=== PATIENT | male | born 1970 | race Caucasian/White ===

== ENCOUNTER 2017-01-21 08:20 | Inpatient (IN) | payer BC, OTHER ==
[~2017-01-21] VITALS: Ht 182.9 cm; Wt 106.6 kg
[2017-01-21 00:30] VITALS: BP 96/66
[2017-01-21] MEDS ORDERED: ONDANSETRON ODT 4 MG TAB.RAPDIS SL PRN (22:30)
[2017-01-21] MEDS ORDERED: ONDANSETRON 4 MG/2 ML VIAL IM PRN (22:30)
[2017-01-21] MEDS ORDERED: DICYCLOMINE HCL 20 MG TABLET PO PRN (22:30)
[2017-01-21] MEDS ORDERED: diphenhydrAMINE 50 MG CAPSULE PO PRN (22:30)
[2017-01-21] MEDS ORDERED: INSULIN REGULAR, HUMAN 300 UNIT/3 ML VIAL SQ PRN (22:30)
[2017-01-21] MEDS ORDERED: MIRALAX 17 GM POWD.PACK PO PRN (22:30)
[2017-01-21] MEDS ORDERED: BUPRENORPHINE HCL 2 MG TAB.SUBL SL PRN (22:30)
[2017-01-21] MEDS ORDERED: DEXTROSE 50% 50 ML DISP.SYRIN IV PRN (22:30)
[2017-01-21] MEDS ORDERED: MAG HYDROX/AL HYDROX/SIMETH 30 ML LIQUID UDC PO PRN (22:30)
[2017-01-21] MEDS ORDERED: METHOCARBAMOL 750 MG TABLET PO PRN (22:30)
[2017-01-21] MEDS ORDERED: MAGNESIUM HYDROXIDE 30 ML LIQUID UDC PO PRN (22:30)
[2017-01-21] MEDS ORDERED: LOPERAMIDE HCL 2 MG CAPSULE PO PRN ×2 (22:30)
[2017-01-21] MEDS ORDERED: ACETAMINOPHEN 325 MG TABLET PO PRN (22:30)
[2017-01-21 22:45] VITALS: BP 116/81
--- NOTE | 2017-01-21 22:45 | NUR ---
PRE-ADMISSION Pt's pre-admission assessment performed in the intake office of [facility]. Pt is accompanied by his . He is A&O x4 and ambulatory with a steady gait. Pt does not appear intoxicated and answers all questions appropriately. He verbalizes that he has been using Subutex, opioids, Xanax, cocaine, marijuana, and occasional ETOH. Pt denies food or drug allergies. Vital signs are B/P 116/78, HR 78, RR 18, O2 sat 94%, T 97.9, pain 0/10. He has a brace on the right knee related to an ongoing injury. Pt is able to provide UDS during the intake process. He states that his home medications are: Lisinopril, Prednisone, sulfsalazine, terazosin, diclofenac, pantaprozole, and metformin. [facility].
[2017-01-21 23:14] LABS: *AMPHETAMINE, URINE NEGATIVE (NEGATIVE); *BARBITURATE, URINE NEGATIVE (NEGATIVE); *CANNABINOID, URINE POSITIVE (NEGATIVE); *COCCAINE, URINE NEGATIVE (NEGATIVE); *OPIATE, URINE NEGATIVE (NEGATIVE); *PHENCYCLIDINE SCREEN,URINE NEGATIVE (NEGATIVE)
--- NOTE | 2017-01-22 00:15 | NUR ---
ADMISSION Pt is a 46 yo male who arrived [facility] the [facility] at 2300 on 01/21/17 for medically supervised detox. He is A&O x4 and ambulatory with a steady gait. He reports NKA, is full code status, and on a regular diet. Body check performed by T and skin check performed by nurse. He was oriented to the unit and his room. Vital signs in intake are: B/P 116/81, HR 78, RR 18, O2 sat 94%, T 97.9, pain 0/10. Pt is 6'0" and weight 235lb. He has a PMH of DM Type II, HTN, psoriasis, psoriatic arthritis, enlarged prostate, acid reflux, thalassemia, right knee injury with swelling, bilateral hand swelling, and anxiety. Lung sounds clear, PERRLA, brisk capillary refill, bowel sounds present. He has a small scabs on the right [place] and a bruise on the right calf. No s/s of infection. Pt wears bilateral wrist guards when sleeping to prevent swelling. History of Use 1) Subutex SL 1 mg BID for the past 1 year. Last used 1mg on 01/21/17 at 2100. He has used Subutex "off and on for 10 years". At one time he was using 32mg per day. 2) Xanax 1-2mg on 14 days per month for the past 1 year. Last used 4mg on 01/07/17. He has used Xanax "off and on for 10 years". 3) Oxycodone 60mg PO on 14 days per month for the past 1 years. Last used 30mg on 01/10/17. He has used oxycodone "off and on for 10 years". 4) ETOH anywhere from 1 beer to 4 mixed drinks 2x/month for the past 1 year. Last drank 4 margaritas on 01/14/17. He has used ETOH occasionally for the past 17 years. 5) Cocaine 1-2 grams per day for 14 days out of the month. Last used 17.5 grams over 2 weeks. He has used cocaine "off and on for 17 years". 6) Marijuana 2 hits at night. Last used 2 hits on 01/20/17. He has used marijuana occasionally for 17 years. The patient reports that he alternates between using Oxycodone and Subutex. He uses Xanax as needed to "come down off the uppers" . Symptoms when he doesn't use include "racing thoughts, cold, anxiety, diarrhea, body aches". He decided to come to treatment today because, "I"m getting to be so far gone". The patient explains that he became paranoid and believed his family was trying to hurt him. His longest period of sobriety was 18 months ago for four day. This is his first time in treatment. His primary care physician is Dr. Addy Morrison in [facility]. COWS 2 and CIWA 1 on admission. UDS positive for cannabinoids. MD aware of patients admission. Pt educated regarding use of the call light and all questions answered. Fall and seizure precautions in place. Bed is down with call light in reach. Addendum: 01/22/17 at 0604 by THALIA BRADY RN Pt's PMH also includes ear infections, seasonal allergies, and pneumonia. Addendum: 01/22/17 at 0611 by THALIA BRADY RN Last date of cocaine use 01/11/17 Addendum: 01/22/17 at 0623 by THALIA BRADY RN Pt was treated at the on 01/12/17 for an overdose.
[2017-01-22] MEDS ORDERED: PRED-429 PO (00:24)
[2017-01-22] MEDS ORDERED: PANT40TA4 PO (00:24)
[2017-01-22] MEDS ORDERED: METF-494 PO (00:24)
[2017-01-22] MEDS ORDERED: SULF500T8 PO (00:24)
[2017-01-22] MEDS ORDERED: LISI10TA5 PO (00:24)
[2017-01-22] MEDS ORDERED: TERA10CA4 PO (00:24)
[2017-01-22] MEDS ORDERED: DICL50TA7 PO (00:24)
[2017-01-22] MEDS: IBUPROFEN 600 MG TABLET PO PRN ×2 (01:00→21:16)
--- NOTE | 2017-01-22 01:01 | NUR ---
PRN Motrin administration Pt c/o right knee pain 12/20. PRN Motrin administered.
[2017-01-22] MEDS ORDERED: IBUPROFEN 600 MG TABLET ONE (01:09)
--- NOTE | 2017-01-22 02:01 | NUR ---
PRN Motrin reassessment PRN Motrin effective. Pt is lying comfortably in bed resting with eyes closed. Respirations even and unlabored. Safety measures in place.
[2017-01-22 04:00] VITALS: BP 101/65
--- NOTE | 2017-01-22 07:13 | NUR ---
END OF SHIFT Report provided to day shift nurse. Pt is lying in bed resting. He is a 46 yo male admitted to [facility] on 01/21/17 at 2300 for Subutex dependence with a h/o BZD, oxycodone, ETOH, cocaine, and marijuana use. Admission orders received. Last COWS 2 and CIWA 1. He drank 480mL and slept for 5 hours. Fall and seizure precautions in place. Bed is down with call light in reach.
[2017-01-22] MEDS ORDERED: BLOOD SUGAR DIAGNOSTIC 1 EACH STRIP VI SCH (07:30)
--- NOTE | 2017-01-22 07:40 | NUR ---
START OF SHIFT NOTE: Report received from date night caregiver nurse. Pt is 46 yo male admitted 01/21/17 for Subutex dependence with a h/o BZD, oxycodone, ETOH, cocaine, and marijuana use. Pt is a Diabetic. Pt is alert and oriented X4. Color good, skin warm and dry. Respirations even and unlabored. Safety precautions observed. Call light within reach.
--- NOTE | 2017-01-22 07:45 | NUR ---
Accucheck 117 No insulin administered per sliding scale.
[2017-01-22 08:20] LABS: BASOPHILS % (AUTO) 0.6 % (0.0-2.0); EOSINOPHILS # (AUTO) 0.1 K/uL (0.0-0.7); EOSINOPHILS % (AUTO) 1.2 % (0.0-7.0); HEMATOCRIT 37.5 % (40-50); LYMPHOCYTES # (AUTO) 2.4 K/UL (0.8-4.8); LYMPHOCYTES % (AUTO) 33.9 % (20.5-51.5); MEAN CORPUSCULAR HEMOGLOBIN 32.8 UUG (27.0-31.0); MEAN CORPUSCULAR HGB CONC 35 g/dL (32.0-37.0); MEAN CORPUSCULAR VOLUME 94.4 FL (82.0-92.0); MONOCYTES # (AUTO) 0.5 K/UL (0.1-1.30); NEUTROPHILS # (AUTO) 3.9 K/UL (1.8-8.9); NEUTROPHILS % (AUTO) 57.3 % (38.5-71.5); PLATELET COUNT (AUTO) 168 K/UL (150-450); RED BLOOD CELL COUNT(AUTO) 3.97 MIL/UL (4.7-6.1); RED CELL DISTRIBUTION WIDTH 12.6 % (11.5-14.5); WHITE BLOOD COUNT (AUTO) 6.9 K/UL (4.0-11.2)
[2017-01-22 08:41] LABS: ALANINE AMINOTRANSFERASE 23 U/L (16-63); ALBUMIN 3.4 g/dL (3.4-5.0); ALKALINE PHOSPHATASE 41 U/L (50-136); ASPARTATE AMINOTRANSFERASE 22 U/L (15-37); BILIRUBIN,TOTAL 0.3 mg/dL (0.2-1.0); CALCIUM 8.9 mg/dL (8.5-10.1); CARBON DIOXIDE 30 mmol/L (21-32); CHLORIDE 106 mmol/L (98-107); CREATININE 0.8 mg/dL (0.6-1.3); GFR 104 mL/min (>60); GLUCOSE 127 mg/dL (74-106); MAGNESIUM 1.7 mg/dL (1.8-2.4); POTASSIUM 4.6 mmol/L (3.5-5.1); SODIUM SERUM 142 mmol/L (136-145); TOTAL PROTEIN, SERUM 6.6 g/dL (6.4-8.2); UREA NITROGEN, BLOOD 23 mg/dL (7-18)
[2017-01-22 08:42] LABS: ETHANOL < 3 MG/DL (0-0)
[2017-01-22 08:53] LABS: THYROID STIMULATING HORMONE 3.636 mIU/mL (0.358-3.740)
[2017-01-22] MEDS ORDERED: TUBERCULIN,PURIF.PROT.DERIV. 5 TU/0.1 ML TEST ID ONE (09:00)
[2017-01-22] MEDS ORDERED: PATIENT MAY USE OWN MED- MD OK PO SCH ×3 (09:00→21:00)
[2017-01-22] MEDS ORDERED: PANTOPRAZOLE SODIUM 40 MG TABLET.DR PO ONE (09:00)
--- NOTE | 2017-01-22 09:00 | NUR ---
TB test administered LFA
[2017-01-22] MEDS: MULTIVITAMINS,THERAPEUTIC TABLET PO SCH (09:17)
[2017-01-22 11:37] LABS: HIV-1 p24 ANTIGEN NON REACTIVE (NONREACTIVE); HIV-1/2 ANTIBODY NON REACTIVE (NONREACTIVE)
[2017-01-22] MEDS ORDERED: MAGNESIUM OXIDE 400 MG TABLET PO ONE (11:45)
[2017-01-22] MEDS ORDERED: methylPREDNISolone 1 PACK TAB.DS.PK [4MG TAB] PO ONE (13:30)
[2017-01-22] MEDS ORDERED: methylPREDNISolone 4 MG TABLET (DAY#1) PO ONE (13:45)
[2017-01-22] MEDS ORDERED: methylPREDNISolone 4 MG TABLET (DAY#1, BEFORE DINNER) PO ONE (17:30)
[2017-01-22] MEDS: METFORMIN XR 500 MG TAB.SR.24H PO SCH (17:38)
[2017-01-22] MEDS: SULFASALAZINE 500 MG TABLET PO SCH (17:46)
[2017-01-22] MEDS: HYDROXYZINE PAMOATE 25 MG CAPSULE PO PRN (17:47)
--- NOTE | 2017-01-22 17:55 | NUR ---
VSS COWS 4 CIWA 6 Vistaril 50mg po prn and Tylenol 650mg po prn given
[2017-01-22 18:16] VITALS: BP 101/65
--- NOTE | 2017-01-22 18:45 | NUR ---
Pt feels improved after Vistaril and Tylenol prn
--- NOTE | 2017-01-22 18:54 | NUR ---
END OF SHIFT NOTE: Report given to warehouse worker 2nd shift nurse. Pt is 46 yo male admitted 01/21/17 for Subutex dependence with a h/o BZD, oxycodone, ETOH, cocaine, and marijuana use. Pt is a Diabetic. Pt is alert and oriented X4. Color good, skin warm and dry. Respirations even and unlabored. Vital signs have remained stable throughout shift. TB test administered LFA. Pt received Vistaril 50mg po prn and Tylenol 650mg po prn @ 1800 Last COWS 4 CIWA 5@ 1700 Safety precautions observed. Call light within reach.
--- NOTE | 2017-01-22 19:50 | NUR ---
START OF SHIFT Received report from day shift nurse. Pt just got out of the shower and is brushing his hair. He is a 46 yo male admitted to [facility] on 01/21/17 for opiate dependence. He is A&O x4 and ambulatory. NKA, full code status, and on a regular diet. He has a PMH of seasonal allergies, HTN, DM Type II, acid reflux, R knee injury, thalassemia, psoriasis, psoriatic arthritis, ear infections, PNA, anxiety, and drug overdose on 01/12/17. On admission he admitted to using subutex 1mg BID for the past year, xanax 1-2 mg 2 weeks per month and last used 01/07/17, oxycodone 60mg 2 weeks per month, ETOH 1 beer - 4 mixed drinks 2x/month, cocaine 1-2 grams per day for 2 weeks/month, and marijuana. Pt is ordered PRN detox medications. He reports joint aches, anxiety, and is noted with clammy skin. Fall and seizure precautions in place. Bed is down with call light in reach.
[2017-01-22 20:00] VITALS: BP 117/74
[2017-01-22] MEDS ORDERED: methylPREDNISolone 4 MG TABLET (DAY#1, HS) PO ONE (21:00)
[2017-01-22] MEDS ORDERED: TERAZOSIN 5 MG CAPSULE PO SCH ×2 (21:00)
[2017-01-22] MEDS: TERAZOSIN 2 MG CAPSULE PO SCH (21:15)
[2017-01-22] MEDS: GABAPENTIN 300 MG CAPSULE PO SCH (21:16)
[2017-01-22] MEDS: CLONIDINE HCL 0.1 MG TABLET PO PRN (21:16)
--- NOTE | 2017-01-22 21:17 | NUR ---
PRN Clonidine and Motrin Pt c/o joint pain, headache, anxiety, and hot/cold flashes. PRN Clonidine and Motrin administered.
--- NOTE | 2017-01-22 22:17 | NUR ---
PRN Clonidine and Motrin reassessment PRN Clonidine and Motrin effective. Pt reports that headache is relieved. He states that he feels more relaxed and should be able to fall asleep. B/P and HR WNL. His skin is moist with sweat. Offered to remove blanket and he refused.
[2017-01-22 22:20] VITALS: BP 129/71
[2017-01-23] VITALS: BP 129/71
[2017-01-23 04:00] VITALS: BP 117/69
[2017-01-23] MEDS: PANTOPRAZOLE SODIUM 40 MG TABLET.DR PO SCH (07:02)
--- NOTE | 2017-01-23 07:25 | NUR ---
END OF SHIFT Report provided to day shift nurse. Pt is lying in bed resting. He is a 46 yo male admitted to [facility] on 01/21/17 for opiate dependence. He is A&O x4 and ambulatory. NKA, full code status, and on a regular diet. He has a PMH of seasonal allergies, HTN, DM Type II, acid reflux, R knee injury, thalassemia, psoriasis, psoriatic arthritis, ear infections, PNA, anxiety, and drug overdose on 01/12/17. On admission he admitted to using subutex 1mg BID for the past year, xanax 1-2 mg 2 weeks per month and last used 01/07/17, oxycodone 60mg 2 weeks per month, ETOH 1 beer - 4 mixed drinks 2x/month, cocaine 1-2 grams per day for 2 weeks/month, and marijuana. PRN medications ordered for the management of withdrawal symptoms. PRN Motrin administered. Last COWS 1 and CIWA 2. He drank 800mL and slept for 8 hours. Fall and seizure precautions in place. Bed is down with call light in reach.
[2017-01-23] MEDS ORDERED: methylPREDNISolone 4 MG TABLET (DAY#2, ACB) PO ONE (07:30)
--- NOTE | 2017-01-23 07:40 | NUR ---
START OF SHIFT Rcvd endorsement from night nurse, client is in bed, he is A/O x4, he presents with depressed mood, flat affect. Client reports some mild leg cramps. He denies any N/V/D or SI/HI. Encouraged increased fluids as tolerated, to facilitating detox process. Encourage group attendance to improve coping skills. He is a 46 yo male admitted to [facility] on 01/21/17 for opiate, benzodiazepine, and alcohol withdrawal. NKA, Full code status, Regular diet. Last COWS /CIWA 2. PRN Motrin for pain on R knee, and Clonidine for anxiety, irritability. noted effective. He slept 8 hrs. Seizure precautions in place. Side rails x 2 up/padded. Call light within reach. Will continue plan of care
[2017-01-23] MEDS: SULFASALAZINE 500 MG TABLET PO SCH ×2 (08:49→17:48)
[2017-01-23] MEDS: GABAPENTIN 300 MG CAPSULE PO SCH ×2 (08:49→20:21)
[2017-01-23] MEDS: MULTIVITAMINS,THERAPEUTIC TABLET PO SCH (08:49)
[2017-01-23 08:55] VITALS: BP 119/76
[2017-01-23] MEDS ORDERED: methylPREDNISolone 4 MG TABLET (DAY#2, PC LUNCH) PO ONE (12:30)
[2017-01-23 12:55] VITALS: BP 140/87
[2017-01-23] MEDS: IBUPROFEN 600 MG TABLET PO PRN (12:57)
--- NOTE | 2017-01-23 12:57 | NUR ---
PRN Motrin 600mg PO Client reports pain on right knee, no swelling noted. He stated "This is a chronic pain, I notice it more when I am detoxing." Encouraged to elevate right lower extremity, Motrin 600mg Po administered. Will continue to monitor. Call light within reach.
--- NOTE | 2017-01-23 13:57 | NUR ---
Reassessment PRN Motrin 600mg PO Client reports relief from pain on right knee from 5/10 to 2/10, but is manageable. Will continue to monitor. Call light within reach.
[2017-01-23 16:55] VITALS: BP 113/67
[2017-01-23] MEDS ORDERED: methylPREDNISolone 4 MG TABLET (DAY#2, PC DINNER) PO ONE (17:30)
[2017-01-23] MEDS: METFORMIN XR 500 MG TAB.SR.24H PO SCH (17:48)
[2017-01-23] MEDS: HYDROXYZINE PAMOATE 25 MG CAPSULE PO PRN (17:48)
[2017-01-23] MEDS: CLONIDINE HCL 0.1 MG TABLET PO PRN (17:48)
--- NOTE | 2017-01-23 17:48 | NUR ---
PRN Clonidine and Vistaril Client reports irritability and hot/cold flashes PRN Clonidine 0.1mg PO administered. Vistaril 50mg PO given for anxiety will continue to monitor.
--- NOTE | 2017-01-23 18:20 | NUR ---
Urine for drug screen collected
--- NOTE | 2017-01-23 18:48 | NUR ---
Reassessment PRN Clonidine and Vistaril Client is in bed, watching TV, he appears calm. reports relief from hot/cold flashes PRN Clonidine 0.1mg and Vistaril 50mg effective.
[2017-01-23] MEDS: CLOBETASOL PROPIONATE 0.05% CREAM 15 GM TUBE TOP SCH (18:55)
[2017-01-23 19:20] LABS: *AMPHETAMINE, URINE NEGATIVE (NEGATIVE); *BARBITURATE, URINE NEGATIVE (NEGATIVE); *CANNABINOID, URINE NEGATIVE (NEGATIVE); *COCCAINE, URINE NEGATIVE (NEGATIVE); *OPIATE, URINE NEGATIVE (NEGATIVE); *PHENCYCLIDINE SCREEN,URINE NEGATIVE (NEGATIVE)
--- NOTE | 2017-01-23 19:25 | NUR ---
END OF SHIFT Endorsed to incoming nurse. Client is lying in bed resting. He is a 46 yo male admitted to [facility] on 01/21/17 for opiate dependence. He is A&O x4 and ambulatory. NKA, full code status, and on a regular diet. PRN medications ordered for the management of withdrawal symptoms. PRN Motrin administered, Clonidine and Vistaril. Last COWS 3 and CIWA 2. Fall and seizure precautions in place. Bed is down with call light in reach.
[2017-01-23 20:00] VITALS: BP 131/85
--- NOTE | 2017-01-23 20:00 | NUR ---
Start of Shift Pt is a 46 year old male admitted for Opiate dependence. During admission, pt reported using Subutex 1mg BID for the past year, Xanax 1-2 mg 2 weeks per month, oxycodone 60mg 2 weeks per month, ETOH 1 beer - 4 mixed drinks 2x/month, cocaine 1-2 grams per day for 2 weeks/month, and marijuana. PMH: seasonal allergies, HTN, DM Type II, acid reflux, R knee injury, thalassemia, psoriasis, psoriatic arthritis, ear infections, PNA, anxiety, and drug overdose on 01/12/17. Upon assessment, pt is alert/oriented x4, NKA, regular diet, fall/seizure precautions and full code. Pt presented with anxiety, mild body aches, skin noted to be flushed/clammy, respirations even/unlabored, denies SOB/chest pain, denies n/v/d, bowel sounds active x4, abdomen soft. Pt is scheduled for discharge tomorrow. Safety measures in place, call light within reach, side rails up x2, bed locked and in low position. Will continue to monitor.
[2017-01-23] MEDS: TERAZOSIN 2 MG CAPSULE PO SCH (20:21)
[2017-01-23] MEDS ORDERED: methylPREDNISolone 4 MG TABLET (DAY#2, HS) PO ONE (21:00)
--- NOTE | 2017-01-23 23:59 | NUR ---
PRN Administration Pt requested aid to help her sleep. Non-pharmacological methods ineffective. Benadryl 50mg PRN administered. Safety measures in place. Will continue to monitor.
[2017-01-24] VITALS: BP 121/65
--- NOTE | 2017-01-24 00:59 | NUR ---
PRN Reassessment Upon reassessment, pt is sleeping, eyes closed, respirations even/unlabored, no s/s of acute distress noted. Safety measures in place. Will continue to monitor.
[2017-01-24 04:00] VITALS: BP 126/87
[2017-01-24] MEDS: HYDROXYZINE PAMOATE 25 MG CAPSULE PO PRN (04:11)
--- NOTE | 2017-01-24 04:11 | NUR ---
PRN Administration Upon awakening, pt reported feeling anxious, non-pharmacological methods ineffective. Vistaril 50mg PRN administered. Safety measures in place. Will continue to monitor.
[2017-01-24] MEDS: PANTOPRAZOLE SODIUM 40 MG TABLET.DR PO SCH (06:43)
--- NOTE | 2017-01-24 07:00 | NUR ---
START OF SHIFT Received report from manufacturing shift supervisor Rn Tayla. Patient is a 46/M admitted to [facility] on 01/21/17. NKA, Full code, Regular diet. History of DM 2, HTN, Acid Reflux, Right knee injury, Anxiety, psoriasis, psoriatic arthiritis, PNA, and OD on 01/12/2017. Patient was on symptoms triggered therapy and tolerated it well. Benadryl and Vistaril PRN were administered during previous shift and were noted to be effective. Orders for discharge this morning to [facility]. Patient is currently resting in bed with eyes open. He reported being very tired because he only slept 3 hours last night. He reported feeling anxiety about his discharge this morning and continuing his sobriety. No signs of acute distress noted at this time. Side rails up x 2, bed in lowest position, and call light within reach. Will continue to monitor patient.
--- NOTE | 2017-01-24 07:00 | NUR ---
End of Shift Pt is a 46 year old male admitted for Opiate dependence. During admission, pt reported using Subutex 1mg BID for the past year, Xanax 1-2 mg 2 weeks per month, oxycodone 60mg 2 weeks per month, ETOH 1 beer - 4 mixed drinks 2x/month, cocaine 1-2 grams per day for 2 weeks/month, and marijuana. PMH: seasonal allergies, HTN, DM Type II, acid reflux, R knee injury, thalassemia, psoriasis, psoriatic arthritis, ear infections, PNA, anxiety, and drug overdose on 01/12/17. NKA, regular diet, fall/seizure precautions and full code. During shift, Pt presented with anxiety, mild body aches, skin noted to be flushed/clammy - scheduled medications administered, effective, no s/s of acute withdrawal noted. COWS 2 and CIWA 2. Benadryl 50mg PRN administered, effective. Pt slept for 7 hours, intake of 1495 ml Po and voids x3. Pt is scheduled for discharge today. Safety measures in place, call light within reach, side rails up x2, bed locked and in low position. Endorsed to day shift nurse.
[2017-01-24] MEDS ORDERED: methylPREDNISolone 4 MG TABLET (DAY#3, ACB) PO ONE (07:30)
[2017-01-24 08:00] VITALS: BP 117/92
[2017-01-24] MEDS: GABAPENTIN 300 MG CAPSULE PO SCH (08:11)
[2017-01-24] MEDS: SULFASALAZINE 500 MG TABLET PO SCH (08:11)
[2017-01-24] MEDS: CLOBETASOL PROPIONATE 0.05% CREAM 15 GM TUBE TOP SCH (08:11)
[2017-01-24] MEDS: MULTIVITAMINS,THERAPEUTIC TABLET PO SCH (08:12)
[2017-01-24] MEDS ORDERED: Ibuprofen PO (08:50)
[2017-01-24] MEDS ORDERED: METH-33 PO (08:50)
[2017-01-24] MEDS ORDERED: DIPH50CA37 PO (08:50)
[2017-01-24] MEDS ORDERED: Gabapentin PO (08:50)
[2017-01-24] MEDS ORDERED: Terazosin Hcl PO (08:50)
[2017-01-24] MEDS ORDERED: HYDR-3895 PO (08:50)
[2017-01-24] MEDS ORDERED: DICY20TA28 PO (08:50)
[2017-01-24] MEDS ORDERED: METH4TAB21 PO (08:51)
--- NOTE | 2017-01-24 09:35 | NUR ---
DISCHARGE Patient was discharged off the unit at 0935 with all belongings. Last COWS was 5 and CIWA 5. Vital signs within normal limits. A&O x 4 and ambulatory. Patient was transferred to [facility] via private car ([facility] Was escorted off the unit by TYPEWRITER RIBBON WINDER.
[2017-01-24] MEDS ORDERED: methylPREDNISolone 4 MG TABLET (DAY#3, PC LUNCH) PO ONE (12:30)
[2017-01-24] MEDS ORDERED: methylPREDNISolone 4 MG TABLET (DAY#3, PC DINNER) PO ONE (17:30)
[2017-01-24] MEDS ORDERED: methylPREDNISolone 4 MG TABLET (DAY#3, HS) PO ONE (21:00)
[2017-01-25 05:19] LABS: HCV AB 0.1 s/co ratio (0.0-0.9); HEPATITIS B CORE AB, IgM Negative (Negative); HEPATITIS B SURFACE AG Negative (Negative)
[2017-01-25] MEDS ORDERED: methylPREDNISolone 4 MG TABLET (DAY#4, ACB) PO ONE (07:30)
[2017-01-25] MEDS ORDERED: methylPREDNISolone 4 MG TABLET (DAY#4, PC LUNCH) PO ONE (12:30)
[2017-01-25] MEDS ORDERED: methylPREDNISolone 4 MG TABLET (DAY#4, HS) PO ONE (21:00)
[2017-01-26] MEDS ORDERED: methylPREDNISolone 4 MG TABLET (DAY#5, ACB) PO ONE (07:30)
[2017-01-26] MEDS ORDERED: methylPREDNISolone 4 MG TABLET (DAY#5, HS) PO ONE (21:00)
[2017-01-27] MEDS ORDERED: methylPREDNISolone 4 MG TABLET (DAY#6, ACB) PO ONE (07:30)
== END 2017-01-24 09:35 | disposition other institution (70) | DRG 895 ==
LOC: SRC 22:16
PROVIDERS: ADMIT Internal Medicine; ATTEND Internal Medicine
PROC: HZ2ZZZZ Detoxification Services for Substance Abuse Treatment (ICD-10-PCS; principal; 2017-01-21)
PROC: HZ41ZZZ Group Counseling for Substance Abuse Treatment, Behavioral (ICD-10-PCS; 2017-01-23)
PROC: HZ31ZZZ Individual Counseling for Substance Abuse Treatment, Behavioral (ICD-10-PCS; 2017-01-24)
DX: F11.23 Opioid dependence with withdrawal (principal); F14.10 Cocaine abuse, uncomplicated; F10.10 Alcohol abuse, uncomplicated; F12.90 Cannabis use, unspecified, uncomplicated; E86.0 Dehydration; E83.42 Hypomagnesemia; E11.9 Type 2 diabetes mellitus without complications; Y90.9 Presence of alcohol in blood, level not specified; K21.9 Gastro-esophageal reflux disease without esophagitis; N40.0 Benign prostatic hyperplasia without lower urinary tract symptoms; L40.59 Other psoriatic arthropathy; I10 Essential (primary) hypertension; F41.9 Anxiety disorder, unspecified; Z91.89 Other specified personal risk factors, not elsewhere classified; M17.5 Other unilateral secondary osteoarthritis of knee; Z79.84 Long term (current) use of oral hypoglycemic drugs; Z79.899 Other long term (current) drug therapy; Z82.49 Family history of ischemic heart disease and other diseases of the circulatory system; Z83.3 Family history of diabetes mellitus; Z81.1 Family history of alcohol abuse and dependence
CPT/HCPCS: 36415; 70030-TC; 80307; 80349; 83735; 84443; 85025; 86580; 86592; 86705; 86803; 87340; 87806; G6040-TC; J1815; J7509; Q0163